=== PATIENT | male | born 1960 | race Two or more races ===

== ENCOUNTER 2021-08-10 22:26 | Emergency (ER) | payer SELFPAY ==
[~2021-08-10] VITALS: Ht 165.1 cm; Wt 63.6 kg
[~2021-08-10 22:26] MED LIST: ALBU8.5H17 IH; FLO0.4C PO; LACT10SO3 PO; PANT40TA54 PO; TIOT4MIS3 INH
[2021-08-10 23:05] VITALS: BP 130/57
[2021-08-10 23:28] LABS: BASOPHILS # (AUTO) 0.1 X10'3 (0-0.2); BASOPHILS % (AUTO) 0.6 % (0-1); EOSINOPHILS % (AUTO) 0 % (0-6); HEMATOCRIT 34.8 % (42.0-52.0); HEMOGLOBIN 11.5 g/dl (14.0-17.9); LYMPHOCYTES # (AUTO) 0.8 X10'3 (1.1-4.8); LYMPHOCYTES % (AUTO) 4.1 % (21-51); MEAN CORPUSCULAR HEMOGLOBIN 30.5 PG (27.0-31.0); MEAN CORPUSCULAR HGB CONC 33.1 g/dL (33.0-36.5); MEAN CORPUSCULAR VOLUME 92.3 FL (78-98); MONOCYTES # (AUTO) 0.9 X10'3 (0-0.9); MONOCYTES % (AUTO) 4.6 % (2-12); NEUTROPHILS # (AUTO) 18.4 X10'3 (1.8-7.7); NEUTROPHILS % (AUTO) 90.7 % (42-75); PLATELET COUNT 64 X10'3 (140-440); RED BLOOD COUNT 3.78 X10'6 (4.70-6.10); WHITE BLOOD COUNT 20.3 X10'3 (4.5-11.0)
[2021-08-10 23:44] LABS: ALANINE AMINOTRANSFERASE 88 U/L (12-78); ALBUMIN 2.1 G/DL (3.4-5.0); ALBUMIN/GLOBULIN RATIO 0.5 (1.1-1.5); ALKALINE PHOSPHATASE 120 IU/L (46-116); ANION GAP 11 (8-16); ASPARTATE AMINO TRANSFERASE 126 U/L (10-37); BILIRUBIN,TOTAL 2.8 MG/DL (0.1-1.0); BLOOD UREA NITROGEN 10 MG/DL (7-18); BUN/CREATININE RATIO 13.7 (5.4-32.0); CALCIUM 7.8 MG/DL (8.5-10.1); CHLORIDE 110 MMOL/L (99-107); CREATININE 0.73 MG/DL (0.60-1.10); ETHANOL < 0.010 GM/DL (0.0-0.010); GLUCOSE 107 MG/DL (70-104); LIPASE 57 U/L (73-393); MAGNESIUM 1.6 MG/DL (1.5-2.4); POTASSIUM 3.2 MMOL/L (3.5-5.1); SODIUM 144 MMOL/L (135-145); TOTAL CARBON DIOXIDE 22.6 MMOL/L (24-32); TOTAL PROTEIN 6.5 G/DL (6.4-8.2); eGFR > 90 ML/MIN
== END 2021-08-11 00:42 | disposition left against medical advice (07) ==
LOC: EDBD → ER 22:27
DX: D72.829 Elevated white blood cell count, unspecified (principal); R45.1 Restlessness and agitation
CPT/HCPCS: 80053; 80320; 83690; 83735; 85025; 99283

== ENCOUNTER 2021-08-12 09:22 | Inpatient (IN) | payer MEDICAID, OTHER ==
[2021-08-12] VITALS (11 sets, daily range): BP systolic 88–121; BP diastolic 47–72
[~2021-08-12] VITALS: Ht 172.7 cm; Wt 70.1 kg
[~2021-08-12 09:22] MED LIST changes: +NORepinephrine 1 mg/ml inj IV ONE; +etomidate 2mg/ml inj. ONE; +rocuronium 10mg/ml inj IV ONE
[2021-08-12] MEDS ORDERED: normal saline 1000ML IV soln IV ONE (10:10)
[2021-08-12] MEDS ORDERED: CefTRIAXone 2gm/NS 100ml IVPB 100 ML IV ONE (10:10)
[2021-08-12] MEDS ORDERED: vancomycin/NS 1 GM ADD-VANTAGE 250 ML IV ONE (10:20)
[2021-08-12] MEDS ORDERED: ketamine 50 mg/ml 10ml vial ONE (10:28)
[2021-08-12 10:37] LABS: BASOPHILS # (AUTO) 0.1 X10'3 (0-0.2); BASOPHILS % (AUTO) 0.4 % (0-1); EOSINOPHILS % (AUTO) 0 % (0-6); HEMOGLOBIN 12.7 g/dl (14.0-17.9); LYMPHOCYTES # (AUTO) 0.5 X10'3 (1.1-4.8)
[2021-08-12 10:38] LABS: HEMATOCRIT 40.1 % (42.0-52.0); LYMPHOCYTES % (AUTO) 3.2 % (21-51); MEAN CORPUSCULAR HEMOGLOBIN 30.2 PG (27.0-31.0); MEAN CORPUSCULAR HGB CONC 31.7 g/dL (33.0-36.5); MEAN CORPUSCULAR VOLUME 95.4 FL (78-98); MEAN PLATELET VOLUME 9.3 FL (7.4-10.4); MONOCYTES # (AUTO) 0.7 X10'3 (0-0.9); MONOCYTES % (AUTO) 4.2 % (2-12); NEUTROPHILS # (AUTO) 15.1 X10'3 (1.8-7.7); NEUTROPHILS % (AUTO) 92.2 % (42-75); PLATELET COUNT 56 X10'3 (140-440); RED CELL DISTRIBUTION WIDTH 17.7 % (11.5-14.5); WHITE BLOOD COUNT 16.3 X10'3 (4.5-11.0)
[2021-08-12] MEDS ORDERED: FENTANYL-0.9 % NACL/PF 100 ML IV PRN (10:40)
[2021-08-12] MEDS ORDERED: midazolam 100mg in NS 100ml 100 ML IV PRN (10:40)
[2021-08-12 10:55] LABS: ALBUMIN 1.8 G/DL (3.4-5.0); ALBUMIN/GLOBULIN RATIO 0.4 (1.1-1.5); ALKALINE PHOSPHATASE 105 IU/L (46-116); ANION GAP 17 (8-16); ASPARTATE AMINO TRANSFERASE 254 U/L (10-37); BILIRUBIN,TOTAL 3.5 MG/DL (0.1-1.0); BLOOD UREA NITROGEN 22 MG/DL (7-18); BUN/CREATININE RATIO 14.4 (5.4-32.0); CALCIUM 8.3 MG/DL (8.5-10.1); CHLORIDE 111 MMOL/L (99-107); CREATININE 1.53 MG/DL (0.60-1.10); POTASSIUM 3.5 MMOL/L (3.5-5.1); SODIUM 144 MMOL/L (135-145); TOTAL CARBON DIOXIDE 16.5 MMOL/L (24-32); TOTAL PROTEIN 6.5 G/DL (6.4-8.2); eGFR 47 ML/MIN
[2021-08-12 11:02] LABS: D-DIMER 23.74 MG/L FEU (0-0.50)
[2021-08-12 11:05] LABS: ABG BASE EXCESS -12.6 mmol/L (-2.0-2.0); ABG HCO3 14.8 mmol/L (22.0-26.0); ABG PCO2 (T) 40.2 mmHg (35.0-48.0); ABG PO2 (T) 89.8 mmHg (75.0-100.0); ALLEN'S TEST POSITIVE; FCOHb 1.4 % (0.0-3.9); FMetHb 0.4 % (0.0-1.5); FO2Hb 91.3 % (94-97); PATIENT TEMPERATURE 37.7; PEEP 5 cm H2O; RESPIRATORY RATE 16 b/min; TIDAL VOLUME 450 mL
[2021-08-12 11:05] LABS: C-REACTIVE PROTEIN 13.24 MG/DL (0.0-0.5); LIPASE 89 U/L (73-393); MAGNESIUM 1.8 MG/DL (1.5-2.4)
[2021-08-12 11:14] LABS: GLUCOSE 105 MG/DL (70-104)
[2021-08-12 11:16] LABS: CLARITY,URINE CLOUDY (Clear); COLOR,URINE YELLOW (Yellow); GLUCOSE, URINE NEGATIVE (Neg); KETONES,URINE NEGATIVE (Neg); LEUKOCYTE ESTERASE ,URINE SMALL (Neg); NITRITES, URINE NEGATIVE (Neg); OCCULT BLOOD,URINE SMALL (Neg); PROTEIN,URINE TRACE mg/dl (Neg)
[2021-08-12 11:19] LABS: ALANINE AMINOTRANSFERASE 94 U/L (12-78)
[2021-08-12] MEDS ORDERED: normal saline 1000ML IV soln IVB ONE (11:20)
[2021-08-12 11:24] LABS: APTT 35 SECONDS (22-32)
[2021-08-12] MEDS ORDERED: acetaminophen 650mg rectal suppository RC ONE (11:45)
[2021-08-12 11:49] LABS: UA COLLECTION TYPE URINAL
[2021-08-12 11:50] LABS: MUCUS STRANDS MODERATE /LPF (Neg)
[2021-08-12 11:51] LABS: BACTERIA,URINE 1+ /HPF (Neg); RBC,URINE 0-2 /HPF (0-2); TRANSITIONAL EPI CELLS,URINE MANY /HPF; WBC,URINE 0-4 /HPF (0-4)
[2021-08-12 11:53] LABS: RENAL CELLS, URINE FEW /HPF; SQUAMOUS EPITHELIAL CELL,UR MODERATE /LPF (FEW)
[2021-08-12] MEDS ORDERED: NORepinephrine inj. 8 MG in dextrose 5%-water 242 ML IV SCH (14:20)
[2021-08-12] MEDS: NORepinephrine 8mg/ 250ml NS 250 ML IV SCH (14:30)
[2021-08-12 15:45] LABS: ABG BASE EXCESS -3.1 mmol/L (-2.0-2.0); ABG HCO3 22.8 mmol/L (22.0-26.0); ABG OXYGEN SATURATION 89.8 % (94-97); ABG PCO2 (T) 46.4 mmHg (35.0-48.0); ABG PO2 (T) 69.2 mmHg (75.0-100.0); ALLEN'S TEST POSITIVE; FCOHb 0.9 % (0.0-3.9); FMetHb 0.2 % (0.0-1.5); FO2Hb 88.8 % (94-97); PEEP 5 cm H2O; RESPIRATORY RATE 16 b/min; TIDAL VOLUME 450 mL; TOTAL HEMOGLOBIN 11.7 G/dl (14.0-18.0)
[2021-08-12] MEDS ORDERED: enoxaparin 100mg/ml syringe SUBCUT ONE (16:05)
--- NOTE | 2021-08-12 16:12 | NUR ---
Received patient report from ER nurse Kendal YEUNG.
--- NOTE | 2021-08-12 18:30 | NUR ---
Patient in room CICU 2016. I have received report from ANJANA Garcia and had the opportunity to ask questions and assume patient care. Patient is intubated and sedated, I will continue to monitor.
[2021-08-12] MEDS ORDERED: hydrocortisone sod succ/PF 250mg/2ml inj. IV ONE (18:37)
[2021-08-12] MEDS ORDERED: acetaminophen 325mg/10.15ml oral unit dose solution PO PRN (18:40)
--- NOTE | 2021-08-12 19:03 | NUR ---
Problems reprioritized. Patient report given, questions answered & plan of care reviewed with Lydia YEUNG.
[2021-08-12 19:14] LABS: ABG BASE EXCESS -3.2 mmol/L (-2.0-2.0); ABG HCO3 21.9 mmol/L (22.0-26.0); ABG OXYGEN SATURATION 93.5 % (94-97); ABG PCO2 (T) 41.6 mmHg (35.0-48.0); ABG PO2 (T) 79.1 mmHg (75.0-100.0); FCOHb 0.6 % (0.0-3.9); FMetHb 0.4 % (0.0-1.5); FO2Hb 92.6 % (94-97); PATIENT TEMPERATURE 38.3; PEEP 5 cm H2O; RESPIRATORY RATE 16 b/min; TIDAL VOLUME 450 mL; TOTAL HEMOGLOBIN 12.2 G/dl (14.0-18.0)
[2021-08-12] MEDS: albumin (human) 25% 100 ML IV solution IV SCH ×2 (19:15→23:30)
[2021-08-12] MEDS: sodium bicarbonate (8.4%) inj. 50 MEQ in dextrose 5%-water 1,000 ML IV SCH (19:58)
[2021-08-12] MEDS: pantoprazole 40MG/NS 100ML BAG 100 ML IV SCH (20:00)
[2021-08-12 21:24] LABS: BASOPHILS # (AUTO) 0.1 X10'3 (0-0.2); BASOPHILS % (AUTO) 0.6 % (0-1); EOSINOPHILS % (AUTO) 0.2 % (0-6); LYMPHOCYTES # (AUTO) 0.4 X10'3 (1.1-4.8); LYMPHOCYTES % (AUTO) 2.5 % (21-51); MEAN CORPUSCULAR HGB CONC 32.3 g/dL (33.0-36.5); MEAN CORPUSCULAR VOLUME 92.8 FL (78-98); MEAN PLATELET VOLUME 9.1 FL (7.4-10.4); MONOCYTES # (AUTO) 0.5 X10'3 (0-0.9); MONOCYTES % (AUTO) 3.6 % (2-12); NEUTROPHILS # (AUTO) 13.5 X10'3 (1.8-7.7); NEUTROPHILS % (AUTO) 93.1 % (42-75); RED BLOOD COUNT 3.34 X10'6 (4.70-6.10); RED CELL DISTRIBUTION WIDTH 17.5 % (11.5-14.5); WHITE BLOOD COUNT 14.5 X10'3 (4.5-11.0)
[2021-08-12 21:37] LABS: PLATELET COUNT 28 X10'3 (140-440)
--- NOTE | 2021-08-12 21:50 | NUR ---
While suctioning patient he went into a SVT rate 160-180's, BP 118/58. Per Dr. Monique give Amiodarone 150mg loading dose, the start Amoi gtt per protocol.
[2021-08-12] MEDS ORDERED: amiodarone 150mg/dext, iso-os 100 ML IV ONE ×2 (21:55)
[2021-08-12] MEDS: amiodarone/D5 360MG/200ML BAG 200 ML IV SCH ×2 (21:55→22:06)
[2021-08-12 22:08] LABS: CREATINE KINASE 1228 U/L (39-308)
[2021-08-12 22:21] LABS: NUCLEATED RED BLOOD CELLS 1 /100WBC (0-0); PLATELET ESTIMATE DECREASED; POLYCHROMASIA FEW; TOTAL CELLS COUNTED 100
--- NOTE | 2021-08-12 22:26 | NUR ---
Left Dr. Monique a msg to call as patient has multiple critical results. Trop 1006, [place] 28
--- NOTE | 2021-08-12 22:55 | NUR ---
Assumed care at 2245. Pt in rapid Afib, on Amio. On levo @ 0.5mcg/kg/min. Fent and versed for sedation. Bicarb gtt infusing, last bicarb 21.9. Sending q2hr lactate now. MD aware HR is still 150s.
[2021-08-12] MEDS: piperacillin/tazo 3.375gm/50ml 50 ML IV SCH (23:28)
[2021-08-13] VITALS (33 sets, daily range): BP systolic 93–148; BP diastolic 52–74
[2021-08-13] MEDS ORDERED: hydrocortisone sod succ/PF 250mg/2ml inj. IV SCH
[2021-08-13] MEDS: NORepinephrine 8mg/ 250ml NS 250 ML IV SCH ×3 (02:06→20:45)
[2021-08-13 02:12] LABS: BASOPHILS % (AUTO) 0.2 % (0-1); EOSINOPHILS # (AUTO) 0.1 X10'3 (0-0.9); EOSINOPHILS % (AUTO) 0.9 % (0-6); HEMATOCRIT 31.2 % (42.0-52.0); HEMOGLOBIN 10.2 g/dl (14.0-17.9); LYMPHOCYTES # (AUTO) 0.3 X10'3 (1.1-4.8); LYMPHOCYTES % (AUTO) 2.2 % (21-51); MEAN CORPUSCULAR HEMOGLOBIN 30.9 PG (27.0-31.0); MEAN CORPUSCULAR HGB CONC 32.9 g/dL (33.0-36.5); MEAN CORPUSCULAR VOLUME 93.9 FL (78-98); MEAN PLATELET VOLUME 10.2 FL (7.4-10.4); MONOCYTES # (AUTO) 0.7 X10'3 (0-0.9); MONOCYTES % (AUTO) 4.8 % (2-12); NEUTROPHILS # (AUTO) 13.2 X10'3 (1.8-7.7); NEUTROPHILS % (AUTO) 91.9 % (42-75); RED BLOOD COUNT 3.32 X10'6 (4.70-6.10); RED CELL DISTRIBUTION WIDTH 17.5 % (11.5-14.5); WHITE BLOOD COUNT 14.4 X10'3 (4.5-11.0)
[2021-08-13 02:20] LABS: ALANINE AMINOTRANSFERASE 69 U/L (12-78); ALBUMIN 2.5 G/DL (3.4-5.0); ALKALINE PHOSPHATASE 74 IU/L (46-116); ANION GAP 8 (8-16); ASPARTATE AMINO TRANSFERASE 187 U/L (10-37); BILIRUBIN,TOTAL 3.9 MG/DL (0.1-1.0); BLOOD UREA NITROGEN 29 MG/DL (7-18); BUN/CREATININE RATIO 29.6 (5.4-32.0); CALCIUM 7.6 MG/DL (8.5-10.1); CHLORIDE 113 MMOL/L (99-107); CREATININE 0.98 MG/DL (0.60-1.10); GLUCOSE 195 MG/DL (70-104); POTASSIUM 4.1 MMOL/L (3.5-5.1); SODIUM 147 MMOL/L (135-145); TOTAL CARBON DIOXIDE 26.2 MMOL/L (24-32); eGFR 78 ML/MIN
[2021-08-13 02:21] LABS: PLATELET COUNT 26 X10'3 (140-440)
[2021-08-13 02:24] LABS: D-DIMER 31.85 MG/L FEU (0-0.50)
[2021-08-13 02:40] LABS: ALBUMIN/GLOBULIN RATIO 0.8 (1.1-1.5); TOTAL PROTEIN 5.8 G/DL (6.4-8.2)
[2021-08-13 03:28] LABS: ABG BASE EXCESS -3.2 mmol/L (-2.0-2.0); ABG HCO3 23.3 mmol/L (22.0-26.0); ABG OXYGEN SATURATION 94.8 % (94-97); ABG PCO2 (T) 48.9 mmHg (35.0-48.0); ABG PO2 (T) 85.3 mmHg (75.0-100.0); FCOHb 0.7 % (0.0-3.9); FMetHb 0.1 % (0.0-1.5); PATIENT TEMPERATURE 37.4; PEEP 5 cm H2O; RESPIRATORY RATE 16 b/min; TIDAL VOLUME 450 mL
[2021-08-13] MEDS: amiodarone/D5 360MG/200ML BAG 200 ML IV SCH ×5 (03:59→22:11)
[2021-08-13] MEDS: sodium bicarbonate (8.4%) inj. 50 MEQ in dextrose 5%-water 1,000 ML IV SCH ×3 (05:10→18:32)
--- NOTE | 2021-08-13 06:58 | NUR ---
Patient in room CICU 2016. I have received report from and had the opportunity to ask questions and assume patient care.
[2021-08-13] MEDS: pantoprazole 40MG/NS 100ML BAG 100 ML IV SCH (07:23)
[2021-08-13] MEDS: piperacillin/tazo 3.375gm/50ml 50 ML IV SCH ×2 (07:25→15:45)
[2021-08-13] MEDS: albumin (human) 25% 100 ML IV solution IV SCH ×2 (07:25→15:44)
[2021-08-13] MEDS: hydrocortisone sod succ/PF 100mg/2ml inj. IV SCH ×2 (07:34→15:45)
[2021-08-13] MEDS: vancomycin/NS 1 GM ADD-VANTAGE 250 ML IV SCH ×2 (09:00→20:06)
[2021-08-13] MEDS ORDERED: propofol 1000mg/100ml bottle 100 ML IV SCH (10:30)
[2021-08-13] MEDS: normal saline 1000ml 1,000 ML IV SCH ×2 (10:35→22:24)
[2021-08-13] MEDS ORDERED: MESSAGE TO PHARMACY PO ONE (11:15)
[2021-08-13] MEDS ORDERED: dextrose 50%-water 50ml dispensing syringe IV PRN ×2 (11:15)
[2021-08-13] MEDS ORDERED: insulin Lispro (HumaLOG) vial - multi-dose SQ PRN ×2 (11:15→11:29)
[2021-08-13] MEDS ORDERED: DEXTROSE 15 GM of carb/4 tabs (each vial/BOTTLE has 4 tablets) PO PRN ×2 (11:15)
[2021-08-13] MEDS ORDERED: glucagon, human recombinant 1mg kit SUBCUT PRN (11:15)
--- NOTE | 2021-08-13 11:24 | NUR ---
Initial: Pt intubated admit DX septic shock, lactic acidosis, anemia, and thrombocytopenia currently NPO w/ OG in place receiving Na-bicarb/D5W at 100ml/hr providing 408 kcals/day per EMR. MAP 74 this AM during rounds. Pt to remain NPO w/ EN initiation tomorrow if continued intubation per MD; TF recs below using IBW pending scaled wt this admit. Pt hx homeless w/ visible severe temporal wasting visualized during rounds in addition to BLE 3+ edema present this AM per RN. Pt meets minimum severe malnutrition criteria at this time; MD notified. LBM 08/12 though pending BM this admit. Will monitor for further nutrition intervention needs. Rec: 1. IF TF; Vital AF at 70ml/hr goal 2. IF TF; additional water flush 200ml Q4H 3. routine bowel care 4. upon extubation; advance diet to regular per HYDROMETEOROLOGY TEACHER/MD recs; recent admit June 14 on EC7 diet per HYDROMETEOROLOGY TEACHER recs 5. scaled wt this admit; subsequent weekly wts Addendum: 08/13/21 at [address] Amended: Links added.
[2021-08-13] MEDS: mineral oil/petrolatum ophthal oint EACHEYE SCH ×2 (14:00→20:06)
--- NOTE | 2021-08-13 18:36 | NUR ---
assumed care at 1820, report from Diann Rico RN.
[2021-08-13 19:15] LABS: HEMOGLOBIN A1C 4.8 % (4.5-6.2); TRIGLYCERIDES 57 MG/DL (20-135)
[2021-08-13] MEDS ORDERED: pantoprazole 40MG/NS 100ML BAG 100 ML IV SCH (20:00)
[2021-08-14] VITALS (39 sets, daily range): BP systolic 101–130; BP diastolic 54–77
[2021-08-14] MEDS: hydrocortisone sod succ/PF 100mg/2ml inj. IV SCH ×3 (00:07→17:08)
[2021-08-14] MEDS: piperacillin/tazo 3.375gm/50ml 50 ML IV SCH ×3 (00:07→17:22)
[2021-08-14] MEDS: albumin (human) 25% 100 ML IV solution IV SCH ×3 (00:09→17:08)
[2021-08-14 01:24] LABS: EOSINOPHILS % (AUTO) 0.2 % (0-6); LYMPHOCYTES # (AUTO) 0.5 X10'3 (1.1-4.8); MEAN PLATELET VOLUME 9.3 FL (7.4-10.4); MONOCYTES # (AUTO) 0.6 X10'3 (0-0.9)
[2021-08-14 01:26] LABS: BASOPHILS % (AUTO) 0.4 % (0-1); HEMATOCRIT 25.5 % (42.0-52.0); HEMOGLOBIN 8.5 g/dl (14.0-17.9); LYMPHOCYTES % (AUTO) 6.5 % (21-51); MEAN CORPUSCULAR HEMOGLOBIN 30.7 PG (27.0-31.0); MEAN CORPUSCULAR HGB CONC 33.5 g/dL (33.0-36.5); MEAN CORPUSCULAR VOLUME 91.7 FL (78-98); MONOCYTES % (AUTO) 8.2 % (2-12); NEUTROPHILS # (AUTO) 5.9 X10'3 (1.8-7.7); NEUTROPHILS % (AUTO) 84.7 % (42-75); RED BLOOD COUNT 2.79 X10'6 (4.70-6.10)
[2021-08-14 01:40] LABS: ALANINE AMINOTRANSFERASE 86 U/L (12-78); ALBUMIN 2.9 G/DL (3.4-5.0); ALKALINE PHOSPHATASE 42 IU/L (46-116); ANION GAP 10 (8-16); ASPARTATE AMINO TRANSFERASE 206 U/L (10-37); BILIRUBIN,TOTAL 3.5 MG/DL (0.1-1.0); BLOOD UREA NITROGEN 33 MG/DL (7-18); BUN/CREATININE RATIO 36.7 (5.4-32.0); CALCIUM 7.4 MG/DL (8.5-10.1); CHLORIDE 110 MMOL/L (99-107); GLUCOSE 169 MG/DL (70-104); POTASSIUM 3.6 MMOL/L (3.5-5.1); SODIUM 144 MMOL/L (135-145); TOTAL CARBON DIOXIDE 24.4 MMOL/L (24-32); TOTAL PROTEIN 5.7 G/DL (6.4-8.2); eGFR 86 ML/MIN
[2021-08-14 01:43] LABS: MAGNESIUM 2.1 MG/DL (1.5-2.4); PHOSPHORUS 1.7 MG/DL (2.3-4.5); PLATELET COUNT 18 X10'3 (140-440); TRIGLYCERIDES 51 MG/DL (20-135)
[2021-08-14 02:02] LABS: NUCLEATED RED BLOOD CELLS 3 /100WBC (0-0); TOTAL CELLS COUNTED 100
[2021-08-14 02:03] LABS: ANISOCYTOSIS 1+; PLATELET ESTIMATE DECREASED
[2021-08-14 02:04] LABS: LARGE PLATELETS FEW
[2021-08-14 02:05] LABS: POLYCHROMASIA FEW
[2021-08-14] MEDS: mineral oil/petrolatum ophthal oint EACHEYE SCH ×4 (02:11→20:00)
[2021-08-14 03:16] LABS: ABG BASE EXCESS -0.8 mmol/L (-2.0-2.0); ABG HCO3 22.3 mmol/L (22.0-26.0); ABG OXYGEN SATURATION 96.6 % (94-97); ABG PCO2 (T) 30.7 mmHg (35.0-48.0); FCOHb 0.3 % (0.0-3.9); FMetHb 0.3 % (0.0-1.5); PATIENT TEMPERATURE 36.8; PEEP 5 cm H2O; RESPIRATORY RATE 18 b/min; TIDAL VOLUME 450 mL; TOTAL HEMOGLOBIN 9.4 G/dl (14.0-18.0)
[2021-08-14] MEDS: amiodarone/D5 360MG/200ML BAG 200 ML IV SCH ×2 (03:28→10:19)
[2021-08-14] MEDS: sodium bicarbonate (8.4%) inj. 50 MEQ in dextrose 5%-water 1,000 ML IV SCH (05:01)
--- NOTE | 2021-08-14 06:00 | NUR ---
Patient in room CICU 2013. I have received report from Jonah YEUNG and had the opportunity to ask questions and assume patient care.
[2021-08-14] MEDS: pantoprazole 40MG/NS 100ML BAG 100 ML IV SCH (09:31)
[2021-08-14] MEDS ORDERED: furosemide 40mg/4ml inj IV ONE (10:20)
[2021-08-14] MEDS: vancomycin/NS 1 GM ADD-VANTAGE 250 ML IV SCH ×2 (10:57→21:46)
--- NOTE | 2021-08-14 11:15 | NUR ---
TF consult: Pt remains intubated, to begin TF per MD at critical care rounds. See TF recs below. Pt seen by wound care, per note pt with an abrasion to left knee with a scab, open wound to left dorsal 4th toe, blister to left hip, partial thickness unroofed blister to left shoulder, and multiple other stable scabbed areas. LBM 08/12, no BM since admit though pt passing gas per RN at critical care rounds. Routine Lactulose added to med list today. Will continue to follow closely. Recommendations 1. Continuous Vital AF via OGT with 75 mL/hr goal rate to provide 1800 mL total volume/day, 2160 kcal, 135 g protein, and 1460 mL water 2. Additional 150 mL water flush Q4H; monitor serum Na 3. Prealbumin q Thursday/ 4. Daily scaled weights 5. Routine bowel care 6. Advance to regular diet as medically indicated following extubation and BSS with ST; on EC7 diet per ST recs at recent admit in May Addendum: 08/14/21 at [address] Amended: Links added.
[2021-08-14] MEDS ORDERED: DEXTROSE 15 GM of carb/4 tabs (each vial/BOTTLE has 4 tablets) OGT PRN ×2 (11:53)
[2021-08-14] MEDS ORDERED: lactulose 20gm/30ml cup PO SCH (12:00)
[2021-08-14 12:04] LABS: HEMATOCRIT 25.3 % (42.0-52.0); HEMOGLOBIN 8.4 g/dl (14.0-17.9); MEAN CORPUSCULAR HEMOGLOBIN 30.4 PG (27.0-31.0); MEAN CORPUSCULAR HGB CONC 33.3 g/dL (33.0-36.5); MEAN CORPUSCULAR VOLUME 91.2 FL (78-98); MEAN PLATELET VOLUME 9.5 FL (7.4-10.4); RED BLOOD COUNT 2.77 X10'6 (4.70-6.10); RED CELL DISTRIBUTION WIDTH 17.3 % (11.5-14.5)
[2021-08-14 12:06] LABS: PLATELET COUNT 18 X10'3 (140-440)
[2021-08-14] MEDS ORDERED: NO HOME MEDS (12:35)
[2021-08-14] MEDS: lactulose 20gm/30ml cup OGT SCH ×3 (12:52→20:00)
[2021-08-14] MEDS ORDERED: potassium phosphate inj 15 MMOL in NS 250ml IV soln 250 ML IV ONE (13:50)
[2021-08-14 17:51] LABS: HEMATOCRIT 24.4 % (42.0-52.0); MEAN CORPUSCULAR HEMOGLOBIN 30.3 PG (27.0-31.0); MEAN CORPUSCULAR HGB CONC 32.8 g/dL (33.0-36.5); MEAN CORPUSCULAR VOLUME 92.4 FL (78-98); MEAN PLATELET VOLUME 8.2 FL (7.4-10.4); RED BLOOD COUNT 2.64 X10'6 (4.70-6.10); RED CELL DISTRIBUTION WIDTH 17.5 % (11.5-14.5)
[2021-08-14 17:59] LABS: PLATELET COUNT 38 X10'3 (140-440)
--- NOTE | 2021-08-14 18:24 | NUR ---
Problems reprioritized. Patient report given, questions answered & plan of care reviewed with ANJANA Guerrero.
[2021-08-14] MEDS ORDERED: VANCOMYCIN LEVEL IV ONE (20:30)
[2021-08-14] MEDS: thiamine 100mg/ml 2ml inj. IV SCH (21:44)
[2021-08-14 22:35] LABS: HEMOGLOBIN 8.1 g/dl (14.0-17.9); MEAN CORPUSCULAR HEMOGLOBIN 30.6 PG (27.0-31.0)
[2021-08-14 22:37] LABS: HEMATOCRIT 24.2 % (42.0-52.0); MEAN CORPUSCULAR HGB CONC 33.4 g/dL (33.0-36.5); MEAN CORPUSCULAR VOLUME 91.5 FL (78-98); MEAN PLATELET VOLUME 8.3 FL (7.4-10.4); RED BLOOD COUNT 2.64 X10'6 (4.70-6.10); RED CELL DISTRIBUTION WIDTH 17.1 % (11.5-14.5)
[2021-08-14 22:47] LABS: PLATELET COUNT 34 X10'3 (140-440)
[2021-08-14 23:05] LABS: VANCOMYCIN,TROUGH 30.2 UG/ML (6.0-14.0)
--- NOTE | 2021-08-14 23:37 | NUR ---
Patient in room CICU 2013. I have received report from Radha YEUNG and had the opportunity to ask questions and assume patient care.
[2021-08-14 23:39] LABS: OCCULT BLOOD STOOL POSITIVE (Neg)
--- NOTE | 2021-08-14 23:44 | NUR ---
ER registration called, pts wheelchair is in washed off and in ER storage ambulance bay
[2021-08-15] VITALS (34 sets, daily range): BP systolic 86–169; BP diastolic 53–94
[2021-08-15] MEDS: DEXMEDETOMIDINE IN 0.9 % NACL 50 ML IV SCH ×4 (00:23→09:58)
[2021-08-15] MEDS: hydrocortisone sod succ/PF 100mg/2ml inj. IV SCH ×3 (00:28→16:06)
[2021-08-15] MEDS: albumin (human) 25% 100 ML IV solution IV SCH ×3 (00:31→16:08)
[2021-08-15] MEDS: piperacillin/tazo 3.375gm/50ml 50 ML IV SCH ×2 (00:39→07:56)
[2021-08-15] MEDS: lactulose 20gm/30ml cup OGT SCH ×6 (00:39→19:56)
[2021-08-15] MEDS: mineral oil/petrolatum ophthal oint EACHEYE SCH ×4 (02:00→19:57)
[2021-08-15 03:55] LABS: ABG HCO3 21.9 mmol/L (22.0-26.0); ABG OXYGEN SATURATION 96.5 % (94-97); ABG PCO2 (T) 29.8 mmHg (35.0-48.0); ALLEN'S TEST POSITIVE; FCOHb 0.3 % (0.0-3.9); FMetHb 0.3 % (0.0-1.5); FO2Hb 95.9 % (94-97); PATIENT TEMPERATURE 37.4; PEEP 5 cm H2O; RESPIRATORY RATE 14 b/min; TIDAL VOLUME 450 mL; TOTAL HEMOGLOBIN 8.7 G/dl (14.0-18.0)
[2021-08-15 04:40] LABS: BASOPHILS % (AUTO) 0.3 % (0-1); EOSINOPHILS % (AUTO) 0.1 % (0-6); HEMOGLOBIN 8.1 g/dl (14.0-17.9); MONOCYTES # (AUTO) 0.3 X10'3 (0-0.9)
[2021-08-15 04:42] LABS: HEMATOCRIT 24.7 % (42.0-52.0); LYMPHOCYTES # (AUTO) 0.4 X10'3 (1.1-4.8); LYMPHOCYTES % (AUTO) 8.5 % (21-51); MEAN CORPUSCULAR HEMOGLOBIN 30.7 PG (27.0-31.0); MEAN CORPUSCULAR HGB CONC 32.9 g/dL (33.0-36.5); MEAN CORPUSCULAR VOLUME 93.3 FL (78-98); MEAN PLATELET VOLUME 8.9 FL (7.4-10.4); MONOCYTES % (AUTO) 7.4 % (2-12); NEUTROPHILS # (AUTO) 3.9 X10'3 (1.8-7.7); NEUTROPHILS % (AUTO) 83.7 % (42-75); RED BLOOD COUNT 2.65 X10'6 (4.70-6.10); RED CELL DISTRIBUTION WIDTH 17.5 % (11.5-14.5); WHITE BLOOD COUNT 4.7 X10'3 (4.5-11.0)
[2021-08-15 04:48] LABS: PLATELET COUNT 25 X10'3 (140-440)
[2021-08-15 04:50] LABS: ALANINE AMINOTRANSFERASE 124 U/L (12-78); ALBUMIN 3.5 G/DL (3.4-5.0); ALKALINE PHOSPHATASE 56 IU/L (46-116); ANION GAP 12 (8-16); ASPARTATE AMINO TRANSFERASE 272 U/L (10-37); BILIRUBIN,TOTAL 4.6 MG/DL (0.1-1.0); BLOOD UREA NITROGEN 32 MG/DL (7-18); BUN/CREATININE RATIO 32.7 (5.4-32.0); CALCIUM 7.9 MG/DL (8.5-10.1); CHLORIDE 112 MMOL/L (99-107); CREATININE 0.98 MG/DL (0.60-1.10); GLUCOSE 164 MG/DL (70-104); PREALBUMIN 7.7 MG/DL (19-36); SODIUM 151 MMOL/L (135-145); TOTAL CARBON DIOXIDE 27.1 MMOL/L (24-32); eGFR 78 ML/MIN
[2021-08-15 04:56] LABS: POTASSIUM 2.8 MMOL/L (3.5-5.1)
[2021-08-15 05:16] LABS: ALBUMIN/GLOBULIN RATIO 1.5 (1.1-1.5); TOTAL PROTEIN 5.9 G/DL (6.4-8.2)
[2021-08-15] MEDS ORDERED: magnesium 4gm in 100ml NS 100 ML IV PRN (05:20)
[2021-08-15] MEDS ORDERED: magnesium 2GM in 50ml NS 50 ML IV PRN (05:20)
[2021-08-15] MEDS ORDERED: sodium chloride 0.45% 1,000 ML IV ONE (05:20)
--- NOTE | 2021-08-15 05:30 | NUR ---
Called geoff for critical potassium. He ordered K mag replacement. low urinary output, he ordered .45 saline bolus.
[2021-08-15 05:37] LABS: ANISOCYTOSIS 1+; NUCLEATED RED BLOOD CELLS 8 /100WBC (0-0); PLATELET ESTIMATE DECREASED; POLYCHROMASIA 1+; TOTAL CELLS COUNTED 100
[2021-08-15] MEDS: potassium Cl 20mEq/100mL bag 100 ML IV PRN ×4 (05:51→11:37)
[2021-08-15 06:32] LABS: MAGNESIUM 2.3 MG/DL (1.5-2.4); PHOSPHORUS 1.9 MG/DL (2.3-4.5)
[2021-08-15] MEDS: pantoprazole 40MG/NS 100ML BAG 100 ML IV SCH (07:49)
[2021-08-15] MEDS: vancomycin/NS 1 GM ADD-VANTAGE 250 ML IV SCH (07:56)
[2021-08-15] MEDS: K and/or MAG REPLACEMENT MC SCH (07:56)
[2021-08-15] MEDS: folic acid 1mg/0.2ml inj IV SCH (08:09)
[2021-08-15] MEDS: thiamine 100mg/ml 2ml inj. IV SCH ×2 (08:10→19:57)
[2021-08-15] MEDS ORDERED: fentaNYL/PF 50MCG/1 ML 2ML syringe IV PRN (10:30)
[2021-08-15] MEDS: FENTANYL-0.9 % NACL/PF 100 ML IV PRN (11:17)
--- NOTE | 2021-08-15 11:33 | NUR ---
F/u 08/15: Pt received 120-125ml free water flushes Q4H not 150ml Q4H order per EMR; pt serum Na 151 mmol/L w/ 75ml water flush hourly to start per benefits specialist at rounds. Recommendations 1. Continuous Vital AF via OGT with 75 mL/hr goal rate to provide 1800 mL total volume/day, 2160 kcal, 135 g protein, and 1460 mL water 2. Additional 75mL water flush hourly per benefits specialist 3. Prealbumin q Thursday/ 4. Daily scaled weights 5. Routine bowel care 6. Advance to regular diet as medically indicated following extubation and BSS with ST; on EC7 diet per ST recs at recent admit in May Addendum: 08/15/21 at [address] Amended: Links added.
[2021-08-15] MEDS: cefTRIAXone 1g/NS 100ml IVPB IV SCH (12:01)
[2021-08-15] MEDS: Neutra Phos packet OGT SCH ×3 (12:21→21:00)
[2021-08-15] MEDS: furosemide 20 MG/2 ML vial IV SCH ×2 (14:47→19:57)
[2021-08-15] MEDS: propofol 1000mg/100ml bottle 100 ML IV SCH (16:07)
[2021-08-15 16:34] LABS: HEMATOCRIT 25.8 % (42.0-52.0); HEMOGLOBIN 8.4 g/dl (14.0-17.9); MEAN CORPUSCULAR HEMOGLOBIN 30.7 PG (27.0-31.0); MEAN CORPUSCULAR HGB CONC 32.6 g/dL (33.0-36.5); MEAN CORPUSCULAR VOLUME 94.3 FL (78-98); MEAN PLATELET VOLUME 9.3 FL (7.4-10.4); RED BLOOD COUNT 2.74 X10'6 (4.70-6.10); RED CELL DISTRIBUTION WIDTH 17.8 % (11.5-14.5); WHITE BLOOD COUNT 6.3 X10'3 (4.5-11.0)
[2021-08-15 17:03] LABS: PLATELET COUNT 25 X10'3 (140-440)
--- NOTE | 2021-08-15 19:00 | NUR ---
Received report from ANJANA Parra; questions answered; pt lightly sedated on low dose diprivan and fentanyl; pt will open eyes when stimulated, +gag, not following any commands; pt's extremities stiffen and eyes up to top of eyelids w/suctioning; pt w/mod ETT secretions; good UO, VSS
[2021-08-15] MEDS: metolazone 2.5mg tablet PO SCH (19:57)
--- NOTE | 2021-08-15 22:30 | NUR ---
Pt w/large tube fdg residuals, not all of hourly water flushes given d/t continued high residuals; good response to lasix; no other changes.
[2021-08-16] VITALS (34 sets, daily range): BP systolic 87–168; BP diastolic 50–84
[2021-08-16] MEDS: lactulose 20gm/30ml cup OGT SCH ×6 (00:35→20:55)
[2021-08-16] MEDS: albumin (human) 25% 100 ML IV solution IV SCH ×3 (00:35→15:47)
[2021-08-16] MEDS: hydrocortisone sod succ/PF 100mg/2ml inj. IV SCH ×3 (00:35→15:47)
[2021-08-16] MEDS: mineral oil/petrolatum ophthal oint EACHEYE SCH ×4 (02:19→20:54)
[2021-08-16] MEDS: furosemide 20 MG/2 ML vial IV SCH ×4 (02:19→20:55)
[2021-08-16 02:52] LABS: ALANINE AMINOTRANSFERASE 124 U/L (12-78); ALBUMIN 4.1 G/DL (3.4-5.0); ALKALINE PHOSPHATASE 64 IU/L (46-116); ANION GAP 13 (8-16); ASPARTATE AMINO TRANSFERASE 233 U/L (10-37); BILIRUBIN,TOTAL 5.4 MG/DL (0.1-1.0); BLOOD UREA NITROGEN 36 MG/DL (7-18); BUN/CREATININE RATIO 38.3 (5.4-32.0); CALCIUM 8.6 MG/DL (8.5-10.1); CHLORIDE 113 MMOL/L (99-107); CREATININE 0.94 MG/DL (0.60-1.10); GLUCOSE 180 MG/DL (70-104); SODIUM 154 MMOL/L (135-145); TOTAL CARBON DIOXIDE 28.5 MMOL/L (24-32); eGFR 82 ML/MIN
[2021-08-16 02:57] LABS: EOSINOPHILS % (AUTO) 0.1 % (0-6); HEMOGLOBIN 7.9 g/dl (14.0-17.9); LYMPHOCYTES # (AUTO) 0.5 X10'3 (1.1-4.8); MONOCYTES # (AUTO) 0.4 X10'3 (0-0.9)
[2021-08-16 02:58] LABS: BASOPHILS % (AUTO) 0.4 % (0-1); HEMATOCRIT 24.2 % (42.0-52.0); LYMPHOCYTES % (AUTO) 7.4 % (21-51); MEAN CORPUSCULAR HEMOGLOBIN 30.8 PG (27.0-31.0); MEAN CORPUSCULAR HGB CONC 32.6 g/dL (33.0-36.5); MEAN CORPUSCULAR VOLUME 94.7 FL (78-98); MEAN PLATELET VOLUME 10.1 FL (7.4-10.4); MONOCYTES % (AUTO) 5.8 % (2-12); NEUTROPHILS % (AUTO) 86.3 % (42-75); RED BLOOD COUNT 2.55 X10'6 (4.70-6.10); RED CELL DISTRIBUTION WIDTH 18.1 % (11.5-14.5)
[2021-08-16 03:00] LABS: POTASSIUM 2.6 MMOL/L (3.5-5.1)
[2021-08-16] MEDS: potassium Cl 20mEq/100mL bag 100 ML IV PRN ×9 (03:02→18:48)
[2021-08-16 03:04] LABS: ALBUMIN/GLOBULIN RATIO 2.2 (1.1-1.5); TRIGLYCERIDES 71 MG/DL (20-135)
[2021-08-16 03:06] LABS: PLATELET COUNT 23 X10'3 (140-440)
[2021-08-16 03:27] LABS: NUCLEATED RED BLOOD CELLS 18 /100WBC (0-0); TOTAL CELLS COUNTED 100
[2021-08-16 03:29] LABS: PLATELET ESTIMATE DECREASED; POLYCHROMASIA 1+
[2021-08-16 04:02] LABS: ABG BASE EXCESS 0.2 mmol/L (-2.0-2.0); ABG HCO3 23.4 mmol/L (22.0-26.0); ABG PCO2 (T) 31.2 mmHg (35.0-48.0); ABG PO2 (T) 56.8 mmHg (75.0-100.0); FCOHb 0.3 % (0.0-3.9); FMetHb 0.5 % (0.0-1.5); FO2Hb 87.3 % (94-97); PATIENT TEMPERATURE 36.5; TOTAL HEMOGLOBIN 8.7 G/dl (14.0-18.0)
--- NOTE | 2021-08-16 04:22 | NUR ---
No change in neuros, remains on minimal sedation; still not following commands; K+ being replaced; still w/large tube fdg residuals, holding a few of water flushes d/t this; good UO, VS remain stable.
[2021-08-16] MEDS: FENTANYL-0.9 % NACL/PF 100 ML IV PRN (05:43)
--- NOTE | 2021-08-16 06:20 | NUR ---
report given to ANJANA Gambino; questions answered; potassium replaced.
[2021-08-16 07:22] LABS: POTASSIUM 2.6 MMOL/L (3.5-5.1)
[2021-08-16] MEDS: cefTRIAXone 1g/NS 100ml IVPB IV SCH (07:31)
[2021-08-16] MEDS: lansoprazole 15mg solutab OGT SCH (07:31)
[2021-08-16] MEDS: metolazone 2.5mg tablet PO SCH ×2 (07:31→20:55)
[2021-08-16] MEDS: folic acid 1mg/0.2ml inj IV SCH (07:31)
[2021-08-16] MEDS: Neutra Phos packet OGT SCH ×3 (07:32→20:56)
[2021-08-16] MEDS: thiamine 100mg/ml 2ml inj. IV SCH ×2 (07:32→20:55)
[2021-08-16] MEDS: K and/or MAG REPLACEMENT MC SCH (08:00)
[2021-08-16 10:47] LABS: PHOSPHORUS 2.1 MG/DL (2.3-4.5)
--- NOTE | 2021-08-16 11:16 | NUR ---
F/u 08/16: Pt remains intubated tolerating TF at goal GRV WNL. Noted pt TF held 3 hours last night and half of free water given from "large GRV's" per RN notes. Pt GRV's 220-380ml WNL; RD d/w RN and notified this AM given serum Na increased to 154mmol/L from prior 151 yesterday. Pt receiving 75ml/hr free water this AM and to continue per cognos lead. Noted pt receiving Propofol at 4.356ml/hr this AM per RN providing additional 115 kcals/day. Will need to adjust EN if Propofol to continue at current rate. Rectal tube -400ml receiving routine lactulose per EMR. Will monitor for further nutrition intervention needs this admit. Recommendations 1. Continuous Vital AF via OGT with 75 mL/hr goal rate to provide 1800mL total volume/day, 2160 kcal, 135 g protein, and 1460 mL water 2. Additional 75mL water flush hourly per cognos lead 3. Prealbumin q Thursday/; Daily scaled weights 4. Monitor for Propofol rate and EN adjustment needs 5. Routine bowel care 6. Advance to regular diet as medically indicated following extubation and BSS with ST; on EC7 diet per ST recs at recent admit in May Addendum: 08/16/21 at [address] Amended: Links added.
[2021-08-16 14:29] LABS: HEMATOCRIT 22.2 % (42.0-52.0); HEMOGLOBIN 7.3 g/dl (14.0-17.9); MEAN PLATELET VOLUME 10.7 FL (7.4-10.4); RED BLOOD COUNT 2.36 X10'6 (4.70-6.10); RED CELL DISTRIBUTION WIDTH 18.1 % (11.5-14.5); WHITE BLOOD COUNT 9.1 X10'3 (4.5-11.0)
[2021-08-16 14:57] LABS: PLATELET COUNT 28 X10'3 (140-440)
[2021-08-16] MEDS: propofol 1000mg/100ml bottle 100 ML IV SCH (16:03)
[2021-08-16] MEDS: risperiDONE 2mg tablet PO SCH (20:57)
[2021-08-16 21:14] LABS: MEAN CORPUSCULAR HEMOGLOBIN 31.1 PG (27.0-31.0); MEAN CORPUSCULAR HGB CONC 32.6 g/dL (33.0-36.5); MEAN CORPUSCULAR VOLUME 95.3 FL (78-98); MEAN PLATELET VOLUME 9.8 FL (7.4-10.4); RED BLOOD COUNT 2.03 X10'6 (4.70-6.10); RED CELL DISTRIBUTION WIDTH 18.3 % (11.5-14.5); WHITE BLOOD COUNT 8.1 X10'3 (4.5-11.0)
[2021-08-16 21:47] LABS: HEMATOCRIT 19.4 % (42.0-52.0); HEMOGLOBIN 6.3 g/dl (14.0-17.9)
[2021-08-16 21:48] LABS: PLATELET COUNT 19 X10'3 (140-440)
[2021-08-16] MEDS ORDERED: diphenhydrAMINE 50 mg/ml inj IV ONE (22:25)
[2021-08-17] VITALS (45 sets, daily range): BP systolic 15–122; BP diastolic 43–87
[2021-08-17] MEDS ORDERED: furosemide 40mg/4ml inj IV ONE (00:25)
[2021-08-17] MEDS ORDERED: diltiazem 5mg/ml 5ml inj. IV ONE (00:45)
[2021-08-17] MEDS ORDERED: diltiazem-NS 100mg/100ml 100 ML IV SCH (00:50)
[2021-08-17] MEDS: hydrocortisone sod succ/PF 100mg/2ml inj. IV SCH ×3 (01:06→16:10)
[2021-08-17] MEDS: lactulose 20gm/30ml cup OGT SCH ×6 (01:06→20:54)
[2021-08-17] MEDS: albumin (human) 25% 100 ML IV solution IV SCH ×4 (01:06→23:37)
[2021-08-17] MEDS: furosemide 20 MG/2 ML vial IV SCH ×3 (02:31→20:55)
[2021-08-17] MEDS: mineral oil/petrolatum ophthal oint EACHEYE SCH ×4 (02:31→20:55)
[2021-08-17] MEDS: potassium Cl 20mEq/100mL bag 100 ML IV PRN ×5 (02:32→16:19)
[2021-08-17 03:34] LABS: EOSINOPHILS % (AUTO) 0.2 % (0-6); LYMPHOCYTES # (AUTO) 0.9 X10'3 (1.1-4.8); LYMPHOCYTES % (AUTO) 10.2 % (21-51); MONOCYTES # (AUTO) 0.5 X10'3 (0-0.9)
[2021-08-17 03:36] LABS: BASOPHILS % (AUTO) 0.3 % (0-1); MEAN CORPUSCULAR HEMOGLOBIN 31.2 PG (27.0-31.0); MEAN CORPUSCULAR HGB CONC 32.7 g/dL (33.0-36.5); MEAN CORPUSCULAR VOLUME 95.4 FL (78-98); MONOCYTES % (AUTO) 5.6 % (2-12); NEUTROPHILS # (AUTO) 7.2 X10'3 (1.8-7.7); NEUTROPHILS % (AUTO) 83.7 % (42-75); PLATELET COUNT 53 X10'3 (140-440); RED BLOOD COUNT 2.26 X10'6 (4.70-6.10); RED CELL DISTRIBUTION WIDTH 17.2 % (11.5-14.5); WHITE BLOOD COUNT 8.6 X10'3 (4.5-11.0)
[2021-08-17 03:44] LABS: ABG HCO3 25.6 mmol/L (22.0-26.0); ABG OXYGEN SATURATION 91.4 % (94-97); ALLEN'S TEST POSITIVE; FCOHb 0.5 % (0.0-3.9); FMetHb 0.3 % (0.0-1.5); FO2Hb 90.7 % (94-97); PATIENT TEMPERATURE 38.2; TOTAL HEMOGLOBIN 7.3 G/dl (14.0-18.0)
[2021-08-17 03:51] LABS: ALANINE AMINOTRANSFERASE 110 U/L (12-78); ALBUMIN 4.1 G/DL (3.4-5.0); ALKALINE PHOSPHATASE 71 IU/L (46-116); ANION GAP 13 (8-16); ASPARTATE AMINO TRANSFERASE 172 U/L (10-37); BILIRUBIN,TOTAL 6.5 MG/DL (0.1-1.0); BLOOD UREA NITROGEN 47 MG/DL (7-18); BUN/CREATININE RATIO 35.9 (5.4-32.0); CALCIUM 8.9 MG/DL (8.5-10.1); CHLORIDE 114 MMOL/L (99-107); CREATININE 1.31 MG/DL (0.60-1.10); GLUCOSE 170 MG/DL (70-104); POTASSIUM 3.8 MMOL/L (3.5-5.1); TOTAL CARBON DIOXIDE 30.7 MMOL/L (24-32); eGFR 56 ML/MIN
[2021-08-17 03:52] LABS: TOTAL PROTEIN 6.2 G/DL (6.4-8.2)
[2021-08-17 03:53] LABS: SODIUM 158 MMOL/L (135-145)
[2021-08-17 03:57] LABS: HEMATOCRIT 21.5 % (42.0-52.0)
[2021-08-17 04:41] LABS: ANISOCYTOSIS 1+; NUCLEATED RED BLOOD CELLS 24 /100WBC (0-0); PLATELET ESTIMATE DECREASED; TOTAL CELLS COUNTED 100
[2021-08-17] MEDS: dextrose 5%-water 1,000 ML IV SCH ×2 (04:41→14:51)
[2021-08-17] MEDS: K and/or MAG REPLACEMENT MC SCH (08:00)
[2021-08-17] MEDS: lansoprazole 15mg solutab OGT SCH (08:17)
[2021-08-17] MEDS: thiamine 100mg/ml 2ml inj. IV SCH ×2 (08:17→20:54)
[2021-08-17] MEDS: metolazone 2.5mg tablet PO SCH (08:17)
[2021-08-17] MEDS: Neutra Phos packet OGT SCH ×3 (08:18→20:54)
[2021-08-17] MEDS: folic acid 1mg/0.2ml inj IV SCH (08:18)
[2021-08-17] MEDS: cefTRIAXone 1g/NS 100ml IVPB IV SCH (08:26)
[2021-08-17] MEDS: insulin regular, human U-100 3ml vial - multi-dose SQ SCH ×2 (09:19→14:11)
[2021-08-17] MEDS: amiodarone/D5 360MG/200ML BAG 200 ML IV SCH ×5 (10:20→22:20)
[2021-08-17 10:26] LABS: ALBUMIN 4.1 G/DL (3.4-5.0); ANION GAP 14 (8-16); BLOOD UREA NITROGEN 56 MG/DL (7-18); BUN/CREATININE RATIO 38.6 (5.4-32.0); CALCIUM 8.7 MG/DL (8.5-10.1); CHLORIDE 112 MMOL/L (99-107); CREATININE 1.45 MG/DL (0.60-1.10); GLUCOSE 228 MG/DL (70-104); TOTAL CARBON DIOXIDE 32.1 MMOL/L (24-32); eGFR 49 ML/MIN
[2021-08-17 10:32] LABS: POTASSIUM 2.7 MMOL/L (3.5-5.1); SODIUM 158 MMOL/L (135-145)
[2021-08-17 11:21] LABS: BASOPHILS % (AUTO) 0.4 % (0-1); EOSINOPHILS % (AUTO) 0.2 % (0-6); MEAN CORPUSCULAR HEMOGLOBIN 30.9 PG (27.0-31.0); MEAN PLATELET VOLUME 10.1 FL (7.4-10.4)
[2021-08-17 11:22] LABS: LYMPHOCYTES # (AUTO) 0.6 X10'3 (1.1-4.8); LYMPHOCYTES % (AUTO) 8.6 % (21-51); MEAN CORPUSCULAR HGB CONC 32.6 g/dL (33.0-36.5); MEAN CORPUSCULAR VOLUME 94.7 FL (78-98); MONOCYTES # (AUTO) 0.4 X10'3 (0-0.9); MONOCYTES % (AUTO) 5.2 % (2-12); NEUTROPHILS # (AUTO) 6.4 X10'3 (1.8-7.7); NEUTROPHILS % (AUTO) 85.6 % (42-75); RED BLOOD COUNT 2.12 X10'6 (4.70-6.10); RED CELL DISTRIBUTION WIDTH 17.3 % (11.5-14.5); WHITE BLOOD COUNT 7.5 X10'3 (4.5-11.0)
[2021-08-17 11:41] LABS: HEMOGLOBIN 6.5 g/dl (14.0-17.9)
[2021-08-17 11:42] LABS: PLATELET COUNT 39 X10'3 (140-440)
[2021-08-17 12:07] LABS: ANISOCYTOSIS 1+; NUCLEATED RED BLOOD CELLS 15 /100WBC (0-0); PLATELET ESTIMATE DECREASED; POLYCHROMASIA 2+; TOTAL CELLS COUNTED 100
[2021-08-17 13:26] LABS: D-DIMER > 35.20 MG/L FEU (0-0.50)
[2021-08-17 13:34] LABS: PLATELET COUNT 39 X10'3 (140-440)
[2021-08-17 15:24] LABS: MAGNESIUM 2.3 MG/DL (1.5-2.4)
[2021-08-17 15:25] LABS: PHOSPHORUS 4.2 MG/DL (2.3-4.5)
[2021-08-17] MEDS: propofol 1000mg/100ml bottle 100 ML IV SCH (16:39)
[2021-08-17] MEDS: FENTANYL-0.9 % NACL/PF 100 ML IV PRN (17:31)
[2021-08-17 18:58] LABS: BASOPHILS % (AUTO) 0.4 % (0-1); EOSINOPHILS % (AUTO) 0.2 % (0-6); HEMOGLOBIN 9.5 g/dl (14.0-17.9); LYMPHOCYTES # (AUTO) 0.5 X10'3 (1.1-4.8); MONOCYTES # (AUTO) 0.3 X10'3 (0-0.9); MONOCYTES % (AUTO) 3.9 % (2-12); NEUTROPHILS % (AUTO) 89.5 % (42-75)
[2021-08-17 19:00] LABS: HEMATOCRIT 29.2 % (42.0-52.0); MEAN CORPUSCULAR HEMOGLOBIN 29.4 PG (27.0-31.0); MEAN CORPUSCULAR HGB CONC 32.5 g/dL (33.0-36.5); MEAN CORPUSCULAR VOLUME 90.5 FL (78-98); MEAN PLATELET VOLUME 9.6 FL (7.4-10.4); NEUTROPHILS # (AUTO) 7.7 X10'3 (1.8-7.7); PLATELET COUNT 69 X10'3 (140-440); RED BLOOD COUNT 3.23 X10'6 (4.70-6.10); RED CELL DISTRIBUTION WIDTH 19.2 % (11.5-14.5); WHITE BLOOD COUNT 8.6 X10'3 (4.5-11.0)
--- NOTE | 2021-08-17 20:35 | NUR ---
RN Note -MD Communication Dr. Sutton at bedside. Orders received.
[2021-08-17] MEDS: acetaminophen 325mg/10.15ml oral unit dose solution OGT PRN (20:54)
[2021-08-17] MEDS: risperiDONE 2mg tablet PO SCH (20:56)
--- NOTE | 2021-08-17 23:05 | NUR ---
RN Note -MD Communication Called Dr. Freeman regarding hypotension and increased O2 demand. Orders received.
[2021-08-18] VITALS (33 sets, daily range): BP systolic 73–103; BP diastolic 37–61
[2021-08-18] MEDS ORDERED: NORepinephrine 8mg/ 250ml NS 250 ML IV PRN (00:30)
[2021-08-18] MEDS ORDERED: NORepinephrine 8mg/ 250ml NS 250 ML IV ONE (00:30)
[2021-08-18] MEDS: hydrocortisone sod succ/PF 100mg/2ml inj. IV SCH ×3 (00:31→19:56)
[2021-08-18] MEDS: lactulose 20gm/30ml cup OGT SCH ×7 (00:32→23:12)
[2021-08-18] MEDS: dextrose 5%-water 1,000 ML IV SCH (00:32)
[2021-08-18 00:39] LABS: BASOPHILS # (AUTO) 0.1 X10'3 (0-0.2); HEMOGLOBIN 9.7 g/dl (14.0-17.9); MEAN CORPUSCULAR HGB CONC 31.6 g/dL (33.0-36.5); MEAN CORPUSCULAR VOLUME 91.6 FL (78-98); MONOCYTES # (AUTO) 0.6 X10'3 (0-0.9)
[2021-08-18 00:41] LABS: BASOPHILS % (AUTO) 0.4 % (0-1); EOSINOPHILS % (AUTO) 0.2 % (0-6); HEMATOCRIT 30.7 % (42.0-52.0); LYMPHOCYTES # (AUTO) 1.1 X10'3 (1.1-4.8); MEAN PLATELET VOLUME 10.6 FL (7.4-10.4); MONOCYTES % (AUTO) 4.2 % (2-12); NEUTROPHILS # (AUTO) 13.4 X10'3 (1.8-7.7); NEUTROPHILS % (AUTO) 88.2 % (42-75); PLATELET COUNT 58 X10'3 (140-440); RED BLOOD COUNT 3.35 X10'6 (4.70-6.10); RED CELL DISTRIBUTION WIDTH 20.1 % (11.5-14.5); WHITE BLOOD COUNT 15.2 X10'3 (4.5-11.0)
[2021-08-18] MEDS: vasopressin inj. 40 UNIT in dextrose 5%-water 50ml 38 ML IV SCH ×3 (00:46→23:09)
[2021-08-18 00:50] LABS: ALANINE AMINOTRANSFERASE 109 U/L (12-78); ALBUMIN 3.9 G/DL (3.4-5.0); ALKALINE PHOSPHATASE 78 IU/L (46-116); ANION GAP 17 (8-16); ASPARTATE AMINO TRANSFERASE 164 U/L (10-37); BILIRUBIN,TOTAL 6.7 MG/DL (0.1-1.0); BLOOD UREA NITROGEN 66 MG/DL (7-18); BUN/CREATININE RATIO 29.7 (5.4-32.0); CALCIUM 8.1 MG/DL (8.5-10.1); CHLORIDE 108 MMOL/L (99-107); CREATININE 2.22 MG/DL (0.60-1.10); GLUCOSE 151 MG/DL (70-104); SODIUM 153 MMOL/L (135-145); TOTAL CARBON DIOXIDE 27.8 MMOL/L (24-32); eGFR 30 ML/MIN
[2021-08-18 00:52] LABS: ALBUMIN/GLOBULIN RATIO 1.8 (1.1-1.5); TOTAL PROTEIN 6.1 G/DL (6.4-8.2)
[2021-08-18] MEDS ORDERED: octreotide 100mcg/1 ml ampule IV ONE (02:25)
[2021-08-18] MEDS: mineral oil/petrolatum ophthal oint EACHEYE SCH ×4 (02:29→19:59)
[2021-08-18] MEDS: octreotide inj. 500 MCG in normal saline 100ml IV soln 97.5 ML IV SCH ×2 (03:01→18:02)
--- NOTE | 2021-08-18 03:50 | NUR ---
RN Note -MD Communication Called Dr. Freeman regarding bloody gastric output, fever, renal function labs, and to clarify CT orders. Orders received.
[2021-08-18] MEDS ORDERED: acetaminophen 1,000mg/100ml IV 100 ML IV SCH (04:00)
--- NOTE | 2021-08-18 04:40 | NUR ---
RN Note -Patient Transport Took pt to CT. Tolerated transport without incident.
[2021-08-18] MEDS ORDERED: VANCOmycin 1250MG/NS 250ml Bag 250 ML IV ONE (04:50)
[2021-08-18] MEDS: bumetanide 0.25mg/ml 4ml vial IV SCH ×6 (05:05→09:22)
[2021-08-18 05:27] LABS: ABG BASE EXCESS -0.6 mmol/L (-2.0-2.0); ABG HCO3 27.2 mmol/L (22.0-26.0); ABG OXYGEN SATURATION 71.5 % (94-97); ABG PCO2 (T) 63.8 mmHg (35.0-48.0); ABG PO2 (T) 48.9 mmHg (75.0-100.0); ALLEN'S TEST POSITIVE; FCOHb 0.2 % (0.0-3.9); FMetHb 0.4 % (0.0-1.5); FO2Hb 71.1 % (94-97); PATIENT TEMPERATURE 38.1; RESPIRATORY RATE 10 b/min; TOTAL HEMOGLOBIN 11.2 G/dl (14.0-18.0)
[2021-08-18 05:30] LABS: ABG BASE EXCESS -3.5 mmol/L (-2.0-2.0); ABG HCO3 22.9 mmol/L (22.0-26.0); ABG OXYGEN SATURATION 91.6 % (94-97); ABG PCO2 (T) 49.5 mmHg (35.0-48.0); ABG PO2 (T) 78.7 mmHg (75.0-100.0); ALLEN'S TEST POSITIVE; FCOHb 0.1 % (0.0-3.9); FMetHb 0.3 % (0.0-1.5); FO2Hb 91.2 % (94-97); PATIENT TEMPERATURE 38.1; PEEP 8 cm H2O; RESPIRATORY RATE 20 b/min
[2021-08-18] MEDS: propofol 1000mg/100ml bottle 100 ML IV SCH (05:47)
[2021-08-18] MEDS: metroNIDAZOLE-Flagyl 500mg/NS 100 ML IV SCH ×3 (06:00→23:09)
[2021-08-18 06:35] LABS: HEMOGLOBIN 9.5 g/dl (14.0-17.9); MEAN CORPUSCULAR HEMOGLOBIN 29.3 PG (27.0-31.0); MEAN CORPUSCULAR HGB CONC 31.6 g/dL (33.0-36.5); MEAN CORPUSCULAR VOLUME 92.8 FL (78-98); MEAN PLATELET VOLUME 10.9 FL (7.4-10.4); PLATELET COUNT 52 X10'3 (140-440); RED BLOOD COUNT 3.23 X10'6 (4.70-6.10); WHITE BLOOD COUNT 18.4 X10'3 (4.5-11.0)
--- NOTE | 2021-08-18 06:56 | NUR ---
Patient in room [facility] 2014. I have received report from Shirley YEUNG (mac) and had the opportunity to ask questions and assume patient care. Addendum: 08/18/21 at 0656 by Elinor Paredes RN Amended: Links added.
[2021-08-18] MEDS: thiamine 100mg/ml 2ml inj. IV SCH ×2 (07:26→19:56)
[2021-08-18] MEDS: furosemide 20 MG/2 ML vial IV SCH (07:28)
[2021-08-18] MEDS: Neutra Phos packet OGT SCH ×3 (07:30→19:58)
[2021-08-18] MEDS: folic acid 1mg/0.2ml inj IV SCH (07:30)
[2021-08-18] MEDS: lansoprazole 15mg solutab OGT SCH (07:31)
[2021-08-18] MEDS: cefepime 1GM/NS ADD-VANTAGE 100 ML IV SCH ×2 (07:37→19:56)
[2021-08-18] MEDS: amiodarone/D5 360MG/200ML BAG 200 ML IV SCH ×2 (07:49→19:56)
[2021-08-18] MEDS: albumin (human) 25% 100 ML IV solution IV SCH ×3 (08:11→23:10)
[2021-08-18] MEDS: NORepinephrine 8mg/ 250ml NS 250 ML IV PRN ×3 (09:31→23:12)
[2021-08-18] MEDS: acetaminophen 325mg/10.15ml oral unit dose solution OGT PRN (12:18)
--- NOTE | 2021-08-18 12:40 | NUR ---
Drs. Sutton and Brian concurred that pt.'s code status should be changed to DNR after discussing pt. DNR band placed on pt.
--- NOTE | 2021-08-18 12:40 | NUR ---
Temp 38.2. Tylenol administered and cooling blanket placed on pt.
--- NOTE | 2021-08-18 12:51 | NUR ---
LA 6.0. 2 hour was 7.2. RN called Dr. Sutton and asked if he wanted the LA to continue until LA is below [address] Sutton stated to stop drawing LAs.
--- NOTE | 2021-08-18 12:55 | NUR ---
Hospitalist Dr. Kelly in to see pt. RN relayed plan of care to him.
--- NOTE | 2021-08-18 14:09 | NUR ---
RT bagging pt. Pt. with low Sp02 and not getting volumes and peak-pressuring. RN notified Dr. Sutton. STAT CXR ordered. publications designer aware.
[2021-08-18] MEDS: FENTANYL-0.9 % NACL/PF 100 ML IV PRN (15:57)
--- NOTE | 2021-08-18 17:31 | NUR ---
Pt. noted to be bleeding from mouth now.
--- NOTE | 2021-08-18 17:37 | NUR ---
[employer] ref. # [id number]. Pt. is ruled out for donation. RN needs to call for time of .
--- NOTE | 2021-08-18 17:52 | NUR ---
Temp came down with cooling blanket. Sp02 remains low. BP stable with Vasopressin and Levo. Pt. unrestrained as he is not moving at all.
--- NOTE | 2021-08-18 18:14 | NUR ---
Problems reprioritized. Patient report given, questions answered & plan of care reviewed with Shirley YEUNG (Mac).
[2021-08-18] MEDS: risperiDONE 2mg tablet PO SCH (19:58)
--- NOTE | 2021-08-18 20:15 | NUR ---
RN Note -MD Communication Called Dr. Machuca regarding critical glucose. Orders received.
[2021-08-18] MEDS ORDERED: dextrose 50%-water 250 ML in Dextrose 10%-water IV solution 750 ML IV ONE (21:30)
[2021-08-19] VITALS (16 sets, daily range): BP systolic 70–114; BP diastolic 16–58
[2021-08-19] MEDS: mineral oil/petrolatum ophthal oint EACHEYE SCH ×2 (02:28→07:14)
[2021-08-19 02:38] LABS: ALANINE AMINOTRANSFERASE 344 U/L (12-78); ALBUMIN 4.5 G/DL (3.4-5.0); ALKALINE PHOSPHATASE 67 IU/L (46-116); BLOOD UREA NITROGEN 84 MG/DL (7-18); BUN/CREATININE RATIO 20.2 (5.4-32.0); CALCIUM 7.4 MG/DL (8.5-10.1); CHLORIDE 101 MMOL/L (99-107); CREATININE 4.16 MG/DL (0.60-1.10); GLUCOSE 120 MG/DL (70-104); eGFR 15 ML/MIN
[2021-08-19 02:50] LABS: ALBUMIN/GLOBULIN RATIO 2.1 (1.1-1.5); APTT 69 SECONDS (22-32); TOTAL PROTEIN 6.6 G/DL (6.4-8.2)
[2021-08-19 02:54] LABS: BILIRUBIN,TOTAL 10.7 MG/DL (0.1-1.0); POTASSIUM 4.9 MMOL/L (3.5-5.1); TRIGLYCERIDES 113 MG/DL (20-135)
[2021-08-19 02:55] LABS: ASPARTATE AMINO TRANSFERASE 1099 U/L (10-37)
[2021-08-19 02:56] LABS: ANION GAP 33 (8-16); SODIUM 147 MMOL/L (135-145)
[2021-08-19 02:58] LABS: TOTAL CARBON DIOXIDE 13.2 MMOL/L (24-32)
[2021-08-19 03:23] LABS: BASOPHILS # (AUTO) 0.1 X10'3 (0-0.2); LYMPHOCYTES # (AUTO) 0.9 X10'3 (1.1-4.8); LYMPHOCYTES % (AUTO) 2.9 % (21-51); MONOCYTES # (AUTO) 1.1 X10'3 (0-0.9)
[2021-08-19 03:24] LABS: BASOPHILS % (AUTO) 0.2 % (0-1); EOSINOPHILS % (AUTO) 0 % (0-6); MEAN PLATELET VOLUME 13.1 FL (7.4-10.4); MONOCYTES % (AUTO) 3.5 % (2-12); NEUTROPHILS # (AUTO) 29.2 X10'3 (1.8-7.7); NEUTROPHILS % (AUTO) 93.4 % (42-75); PLATELET COUNT 54 X10'3 (140-440)
[2021-08-19] MEDS: amiodarone/D5 360MG/200ML BAG 200 ML IV SCH ×2 (03:49→07:03)
[2021-08-19] MEDS: NORepinephrine 8mg/ 250ml NS 250 ML IV PRN ×2 (03:50→06:28)
[2021-08-19] MEDS: lactulose 20gm/30ml cup OGT SCH ×2 (04:00→07:14)
--- NOTE | 2021-08-19 04:00 | NUR ---
RN Note -MD Communication Called Dr. Machuca regarding critical WBC and CO2. Orders received.
[2021-08-19 04:41] LABS: MEAN CORPUSCULAR HGB CONC 31.6 g/dL (33.0-36.5); RED CELL DISTRIBUTION WIDTH 20.5 % (11.5-14.5)
[2021-08-19 04:46] LABS: HEMATOCRIT 32.2 % (42.0-52.0); HEMOGLOBIN 10.2 g/dl (14.0-17.9); RED BLOOD COUNT 3.39 X10'6 (4.70-6.10)
[2021-08-19 04:50] LABS: WHITE BLOOD COUNT 33.6 X10'3 (4.5-11.0)
--- NOTE | 2021-08-19 05:10 | NUR ---
RN Note -MD Communication Called Dr. Machuca regarding critical ABG values. Orders received.
[2021-08-19 05:29] LABS: ABG BASE EXCESS -24.9 mmol/L (-2.0-2.0); ABG HCO3 7.3 mmol/L (22.0-26.0); ABG OXYGEN SATURATION 94.1 % (94-97); ABG PCO2 (T) 39.1 mmHg (35.0-48.0); ABG PO2 (T) 102.7 mmHg (75.0-100.0); ALLEN'S TEST POSITIVE; FCOHb 0.3 % (0.0-3.9); FMetHb 0.6 % (0.0-1.5); FO2Hb 93.3 % (94-97); PATIENT TEMPERATURE 36.6; PEEP 8 cm H2O; RESPIRATORY RATE 20 b/min; TIDAL VOLUME 450 mL; TOTAL HEMOGLOBIN 10.2 G/dl (14.0-18.0)
[2021-08-19] MEDS ORDERED: sodium bicarbonate (8.4%) 1 mEq/ml syringe ONE (05:36)
[2021-08-19] MEDS ORDERED: PED IV ONE (05:50)
[2021-08-19] MEDS ORDERED: NORMAL SALINE IV ONE (05:50)
[2021-08-19] MEDS ORDERED: SODIUM BICARB IV ONE (05:50)
[2021-08-19] MEDS: metroNIDAZOLE-Flagyl 500mg/NS 100 ML IV SCH (05:55)
[2021-08-19] MEDS ORDERED: sodium bicarbonate (8.4%) 1 mEq/ml syringe IV ONE (05:58)
[2021-08-19] MEDS ORDERED: WATER IV SCH (06:00)
[2021-08-19] MEDS ORDERED: SODIUM BICARBONATE IV SCH (06:00)
[2021-08-19] MEDS ORDERED: DEXTROSE 10% IV SCH (06:00)
[2021-08-19] MEDS ORDERED: NORepinephrine inj. 32 MG in normal saline 250ml IV soln 218 ML IV SCH (06:30)
--- NOTE | 2021-08-19 06:36 | NUR ---
Patient in room CICU 2013. I have received report from Shirley Landa" ANJANA and had the opportunity to ask questions and assume patient care.Pt. maxxed on Vasopressin and Levophed. BP 104/15. 100% FI02 on vent. Bicarb IVP just hung and is infusing at a rate of 100cc/hour.
[2021-08-19] MEDS: albumin (human) 25% 100 ML IV solution IV SCH (07:12)
[2021-08-19] MEDS: hydrocortisone sod succ/PF 100mg/2ml inj. IV SCH (07:14)
[2021-08-19] MEDS: lansoprazole 15mg solutab OGT SCH (07:14)
[2021-08-19] MEDS: thiamine 100mg/ml 2ml inj. IV SCH (07:14)
[2021-08-19] MEDS: Neutra Phos packet OGT SCH (07:14)
[2021-08-19] MEDS: folic acid 1mg/0.2ml inj IV SCH (07:14)
--- NOTE | 2021-08-19 07:30 | NUR ---
BP 114/16 on max Levo and Vasopressin doses. Pt. is DNR.
[2021-08-19] MEDS: cefepime 1GM/NS ADD-VANTAGE 100 ML IV SCH (08:01)
[2021-08-19 08:13] LABS: ABG BASE EXCESS -24.5 mmol/L (-2.0-2.0); ABG HCO3 7.8 mmol/L (22.0-26.0); ABG PCO2 (T) 41.9 mmHg (35.0-48.0); ABG PO2 (T) 105.6 mmHg (75.0-100.0); ALLEN'S TEST POSITIVE; FCOHb 0.3 % (0.0-3.9); FMetHb 0.5 % (0.0-1.5); FO2Hb 94.2 % (94-97); PATIENT TEMPERATURE 36.6; PEEP 8 cm H2O; RESPIRATORY RATE 26 b/min; TIDAL VOLUME 450 mL
--- NOTE | 2021-08-19 09:46 | NUR ---
Pt. agonal breathing. Sp02 21% currently. Has been decreasing over the last few minutes.
[2021-08-19] MEDS ORDERED: risperiDONE 2mg tablet OGT SCH (09:54)
--- NOTE | 2021-08-19 10:00 | NUR ---
RN notified Dr. Sutton about pt. Sp02 9% and agonal breathing. Order placed per MD for staff to extubate to comfort care. Pt. extuabted at 1010.
--- NOTE | 2021-08-19 10:25 | NUR ---
RN IS TO DOCUMENT YES TO ALL APPLICABLE AREAS Pronouncement of : 1020 1. Time Physician Notified: 1020 2. Date of :08/19/21 3. Time of : 102 4. DNR/Withdraw life support documented:yes 5. Monitor strip has been placed on chart:yes 6. Assessment process is of one-minute duration and includes following criteria: a) Patient is unresponsive to all stimuli: yes b) Pupils fixed and non-reactive:yes c) Auscultation of precordium reveals absence of heart tones:yes d) Auscultation of lungs reveals absence of breath sounds:yes e) Absence of blood pressure / all vital signs:yes f) QRS complexes are not present on monitor / EKG strip:yes g) Pacer spikes without capture:n/a 4. Comments:
--- NOTE | 2021-08-19 10:40 | NUR ---
RN Donor network with time of using reference number from the previous call yesterday.
== END 2021-08-19 12:15 | DRG 720 ==
LOC: ER 09:22 → EDBD 09:22 → ED HOLD 12:40 → EDBEDREQ 15:22 → CICU 2S 17:19
PROVIDERS: ADMIT Hospitalist; ATTEND Hospitalist
PROC: 5A1955Z Respiratory Ventilation, Greater than 96 Consecutive Hours (ICD-10-PCS; principal; 2021-08-12)
PROC: 0BH17EZ Insertion of Endotracheal Airway into Trachea, Via Natural or Artificial Opening (ICD-10-PCS; 2021-08-12)
PROC: 02HV33Z Insertion of Infusion Device into Superior Vena Cava, Percutaneous Approach (ICD-10-PCS; 2021-08-12)
PROC: B548ZZA Ultrasonography of Superior Vena Cava, Guidance (ICD-10-PCS; 2021-08-12)
PROC: 30233R1 Transfusion of Nonautologous Platelets into Peripheral Vein, Percutaneous Approach (ICD-10-PCS; 2021-08-14)
PROC: 30233N1 Transfusion of Nonautologous Red Blood Cells into Peripheral Vein, Percutaneous Approach (ICD-10-PCS; 2021-08-17)
PROC: 30233M1 Transfusion of Nonautologous Plasma Cryoprecipitate into Peripheral Vein, Percutaneous Approach (ICD-10-PCS; 2021-08-18)
DX: A40.9 Streptococcal sepsis, unspecified (principal); N17.0 Acute kidney failure with tubular necrosis; G93.41 Metabolic encephalopathy; I21.4 Non-ST elevation (NSTEMI) myocardial infarction; R57.0 Cardiogenic shock; R65.21 Severe sepsis with septic shock; E46 Unspecified protein-calorie malnutrition; J80 Acute respiratory distress syndrome; E83.39 Other disorders of phosphorus metabolism; D62 Acute posthemorrhagic anemia; J18.9 Pneumonia, unspecified organism; D68.59 Other primary thrombophilia; E87.0 Hyperosmolality and hypernatremia; I48.0 Paroxysmal atrial fibrillation; D69.59 Other secondary thrombocytopenia; E87.6 Hypokalemia; E87.71 Transfusion associated circulatory overload; E88.09 Other disorders of plasma-protein metabolism, not elsewhere classified; F10.20 Alcohol dependence, uncomplicated; I34.0 Nonrheumatic mitral (valve) insufficiency; Z20.822 Contact with and (suspected) exposure to COVID-19; E87.4 Mixed disorder of acid-base balance; J44.0 Chronic obstructive pulmonary disease with (acute) lower respiratory infection; K70.10 Alcoholic hepatitis without ascites; I47.1 Supraventricular tachycardia; L03.116 Cellulitis of left lower limb; K92.1 Melena; Y84.8 Other medical procedures as the cause of abnormal reaction of the patient, or of later complication, without mention of misadventure at the time of the procedure; Z66 Do not resuscitate; F17.200 Nicotine dependence, unspecified, uncomplicated; B19.20 Unspecified viral hepatitis C without hepatic coma; F32.A Depression, unspecified; R34 Anuria and oliguria; R73.9 Hyperglycemia, unspecified; Z59.00 Homelessness unspecified; Z68.23 Body mass index [BMI] 23.0-23.9, adult; Z79.899 Other long term (current) drug therapy
CPT/HCPCS: 31500; 36415; 36430; 36600; 70450; 71045; 71250; 74176; 80048; 80053; 80202; 81001; 82140; 82272; 82550; 82803; 82948; 83036; 83605; 83690; 83735; 83874; 83880; 84100; 84132; 84134; 84145; 84478; 84484; 85007; 85018; 85025; 85027; 85379; 85610; 85730; 86140; 86885; 86900; 86901; 86920; 87040; 87070; 87077; 87081; 87088; 87186; 87502; 87503; 93005; 93308; 93970; 94002; 94003; 94760; 94799; 96374; 96375; 99291; A4620; A4649; A5200; A6196; A6209; A6212; A6213; A6243; A6250; A6253; A6258; A6449; A9900; C1758; C9113; G0378; J0282; J0692; J0696; J1200; J1650; J1720; J1815; J1940; J2354; J2543; J2704; J3010; J3370; J3411; J3480; J3490; J7030; J7040; J7050; J7060; J7070; P9012; P9016; P9035; P9047; P9059